=== PATIENT | female | born 1930 | race Caucasian/White ===

== ENCOUNTER 2020-10-07 11:29 | Inpatient (IN) | payer OTHER ==
[~2020-10-07] VITALS: Ht 152.4 cm; Wt 40.8 kg
== END 2020-11-01 20:06 | disposition home or self-care (01) | DRG 640 ==
LOC: ER 11:29 → ICU-2 16:24 → SURH 16:24
PROVIDERS: ADMIT Specialist; ATTEND Specialist
PROC: 4A033R1 Measurement of Arterial Saturation, Peripheral, Percutaneous Approach (ICD-10-PCS; 2020-10-07)
PROC: BW21YZZ Computerized Tomography (CT Scan) of Abdomen and Pelvis using Other Contrast (ICD-10-PCS; 2020-10-07)
PROC: B24BZZZ Ultrasonography of Heart with Aorta (ICD-10-PCS; 2020-10-08)
PROC: 3E0F7SF Introduction of Other Gas into Respiratory Tract, Via Natural or Artificial Opening (ICD-10-PCS; 2020-10-08)
PROC: 02HV33Z Insertion of Infusion Device into Superior Vena Cava, Percutaneous Approach (ICD-10-PCS; 2020-10-11)
PROC: 4A12X4Z Monitoring of Cardiac Electrical Activity, External Approach (ICD-10-PCS; principal; 2020-10-12)
PROC: 0W993ZX Drainage of Right Pleural Cavity, Percutaneous Approach, Diagnostic (ICD-10-PCS; 2020-10-13)
PROC: CB2YYZZ Tomographic (Tomo) Nuclear Medicine Imaging of Respiratory System using Other Radionuclide (ICD-10-PCS; 2020-10-15)
PROC: 8E0ZXY6 Isolation (ICD-10-PCS; 2020-10-19)
PROC: B54NZZZ Ultrasonography of Left Upper Extremity Veins (ICD-10-PCS; 2020-10-21)
DX: E87.1 Hypo-osmolality and hyponatremia (principal); G93.41 Metabolic encephalopathy; I50.33 Acute on chronic diastolic (congestive) heart failure; J18.9 Pneumonia, unspecified organism; N39.0 Urinary tract infection, site not specified; N17.8 Other acute kidney failure; B37.0 Candidal stomatitis; I11.0 Hypertensive heart disease with heart failure; J43.9 Emphysema, unspecified; Z79.01 Long term (current) use of anticoagulants; Z95.0 Presence of cardiac pacemaker; Z66 Do not resuscitate; I27.20 Pulmonary hypertension, unspecified; B37.3 Candidiasis of vulva and vagina; I48.0 Paroxysmal atrial fibrillation; D69.6 Thrombocytopenia, unspecified; Z20.822 Contact with and (suspected) exposure to COVID-19